=== PATIENT | female | born 1935 ===

== ENCOUNTER → 2016-12-31 | Outpatient (CLI) | payer MEDICARE, BC, OTHER ==
--- NOTE | 2016-12-31 16:11 | REP ---
The left hip: Two views: History: Pain in the left hip. Findings: AP and frog-leg views of the left hip demonstrate smooth rounded femoral head and intact hip joint space. There is some tendon insertion site spurring on the greater trochanter. 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 No erosive changes seen. Impression: Greater trochanteric spurring and degenerative changes at the symphysis. Otherwise negative left hip. Signed by Angel Gonzalez MD 12/31/2016 04:14 P
== END ==
LOC: M ADAMS 14:57
PROVIDERS: ATTEND Physician Assistant
DX: M16.12 Unilateral primary osteoarthritis, left hip (principal)

== ENCOUNTER → 2017-12-16 | Outpatient (REF) | payer MEDICARE, OTHER | LOC: M LAB REF 21:11 | DX: R30.0 Dysuria (principal) | CPT/HCPCS: 87086 ==